=== PATIENT | male | born 1950 | race Caucasian/White ===

== ENCOUNTER → 2024-05-28 09:33 | Outpatient (REF) | payer MEDICARE, OTHER, SELFPAY | LOC: HWRAD 09:33 | PROVIDERS: ATTENDING PHYSICIAN Specialist; FAMILY PHYSICIAN Family Medicine | DX: R79.89 Other specified abnormal findings of blood chemistry (principal); I10 Essential (primary) hypertension; E78.5 Hyperlipidemia, unspecified; E78.00 Pure hypercholesterolemia, unspecified; E83.51 Hypocalcemia; M81.0 Age-related osteoporosis without current pathological fracture | CPT/HCPCS: 77080 ==